=== PATIENT | male | born 1980 | race Hispanic/Latino ===

== ENCOUNTER 2016-09-09 08:10 | Emergency (ER) | payer OTHER ==
[2016-09-09 08:14] VITALS: BMI 23.8
[2016-09-09 08:20] VITALS: BP 128/80; PULSE 64; RESP 17; TEMP 97.7; O2SAT 98
--- NOTE | 2016-09-09 08:22 | C.PDOC ---
History Of Present Illness <Shakila Vincent - Last Filed: 09/09/16 08:43> <Kari Portillo - Last Filed: 09/14/16 08:22> 35 yr old male with PMhx of anxiety, presents to the ER with left knee pain for 1 day. 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 States today he feels pain while walking, did go to work but had pain and came to the ED. Patient denies back pain, leg pain, weakness or numbness. (Kari Portillo) <Shakila Vincent - Last Filed: 09/09/16 08:43> History Per: Patient History/Exam Limitations: no limitations Onset/Duration Of Symptoms: Days (1) Current Symptoms Are (Timing): Still Present Recent travel outside of the [place]: No <Kari Portillo - Last Filed: 09/14/16 08:22> Time Seen by Provider: 09/09/16 08:11 Chief Complaint (Nursing): Lower Extremity Problem/Injury Past Medical History Reviewed: Historical Data, Nursing Documentation, Vital Signs - Medical History PMH: Anxiety Family History: States: No Known Family Hx - Social History Hx Tobacco Use: No Hx Alcohol Use: Yes Hx Substance Use: Yes - Immunization History Hx Tetanus Toxoid Vaccination: No Hx Influenza Vaccination: Yes Hx Pneumococcal Vaccination: No <Kari Portillo - Last Filed: 09/14/16 08:22> Vital Signs: Last Vital Signs Temp 97.7 F 09/09/16 08:18 Pulse 64 09/09/16 08:18 Resp 17 09/09/16 08:18 BP 128/80 09/09/16 08:18 Pulse Ox 98 09/09/16 16:50 Review Of Systems Except As Marked, All Systems Reviewed And Found Negative. Musculoskeletal: Positive for: Other ((+) Left knee pain). Negative for: Back Pain, Leg Pain Neurological: Negative for: Weakness, Numbness <Kari Portillo - Last Filed: 09/14/16 08:22> Physical Exam - Physical Exam Appears: Well, Non-toxic, No Acute Distress Skin: Warm, Dry, No Rash Head: Atraumatic, Normacephalic Eye(s): bilateral: Normal Inspection, PERRL, EOMI Oral Mucosa: Moist Chest: Symmetrical, No Tenderness Cardiovascular: Rhythm Regular, No Murmur Respiratory: Normal Breath Sounds, No Rales, No Rhonchi, No Wheezing Gastrointestinal/Abdominal: Normal Exam, Soft, No Tenderness, No Guarding, No Rebound Extremity: Normal ROM, Tenderness (Left Knee - Tender to the anterior aspect of the left patella), No Calf Tenderness, No Deformity, No Swelling Neurological/Psych: Oriented x3, Normal Speech, Normal Motor, Normal Sensation <BandarKari - Last Filed: 09/14/16 08:22> ED Course And Treatment O2 Sat by Pulse Oximetry: 98 Pulse Ox Interpretation: Normal - Other Rad No standard instances X-Ray: Interpreted by Me Interpretation: Knee: no fx Progress Note: Treated with motrin 600 mg PO. Kristofer bandage applied to left knee Reassessment Condition: Improved <Shakila Vincent - Last Filed: 09/09/16 08:43> Medical Decision Making <Shakila Vincent - Last Filed: 09/09/16 08:43> <Kari Portillo - Last Filed: 09/14/16 08:22> Medical Decision Making: PLAN: * X-Ray - Left Knee * Motrin PO (BandarKari) Disposition - Disposition Disposition Time: 09:00 - POA Present On Arrival: None <Shakila Vincent - Last Filed: 09/09/16 08:43> <BandarKari - Last Filed: 09/14/16 08:22> - Disposition Referrals: Qamar Granados MD [Staff Provider] - Disposition: HOME/ ROUTINE Condition: GOOD Additional Instructions: Follow up with Ortho for further evaluation Prescriptions: Naproxen [Naprosyn] 1 tab PO BID PRN #25 tab PRN Reason: Pain Instructions: Knee Pain (ED), Knee Exercises (GEN) Forms: Work Excuse - Clinical Impression Clinical Impression: Knee pain <Shakila Vincent - Last Filed: 09/09/16 08:43> - PA / INTERNATIONAL EDITORIAL PRODUCER / Resident Statement MD/DO has reviewed & agrees with the documentation as recorded. - Scribe Statement The provider has reviewed the documentation as recorded by the Scribe <Kari Portillo - Last Filed: 09/14/16 08:22> - Scribe Statement Lizz Mann All medical record entries made by the Scribe were at my direction and personally dictated by me. I have reviewed the chart and agree that the record accurately reflects my personal performance of the history, physical exam, medical decision making, and the department course for this patient. I have also personally directed, reviewed, and agree with the discharge instructions and disposition. (Kari Portillo)
--- NOTE | 2016-09-09 08:54 | C.PDOC ---
History Of Present Illness 35 yr old male with PMHx of anxiety, presents to the ER with left knee pain for 1 day. 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 States today he feels pain while walking, did go to work but had pain and came to the ED. Patient denies back pain, leg pain, weakness or numbness. Time Seen by Provider: 09/09/16 08:11 Chief Complaint (Nursing): Lower Extremity Problem/Injury History Per: Patient History/Exam Limitations: no limitations Onset/Duration Of Symptoms: Days (1) Past Medical History Reviewed: Historical Data, Nursing Documentation, Vital Signs Vital Signs: Last Vital Signs Temp 97.7 F 09/09/16 08:18 Pulse 64 09/09/16 08:18 Resp 17 09/09/16 08:18 BP 128/80 09/09/16 08:18 Pulse Ox 98 09/09/16 08:54 - Medical History PMH: Anxiety Family History: States: No Known Family Hx - Social History Hx Tobacco Use: No Hx Alcohol Use: Yes Hx Substance Use: Yes - Immunization History Hx Tetanus Toxoid Vaccination: No Hx Influenza Vaccination: Yes Hx Pneumococcal Vaccination: No Review Of Systems Except As Marked, All Systems Reviewed And Found Negative. Musculoskeletal: Positive for: Other ((+) Left Knee Pain). Negative for: Back Pain, Leg Pain Neurological: Negative for: Weakness, Numbness Physical Exam - Physical Exam Appears: Well, Non-toxic, No Acute Distress Skin: Warm, Dry, No Rash Head: Atraumatic, Normacephalic Oral Mucosa: Moist Chest: Symmetrical, No Tenderness Cardiovascular: Rhythm Regular, No Murmur Respiratory: Normal Breath Sounds, No Rales, No Rhonchi, No Wheezing Gastrointestinal/Abdominal: Normal Exam, Soft, No Tenderness, No Guarding, No Rebound Extremity: Normal ROM, Tenderness (Left Knee - Tenderness to the anterior aspect of the left patella), No Calf Tenderness, No Deformity, No Swelling Neurological/Psych: Oriented x3, Normal Speech, Normal Motor ED Course And Treatment O2 Sat by Pulse Oximetry: 98 Medical Decision Making Medical Decision Making: PLAN: * X-Ray - Left Knee * Motrin PO Disposition Counseled Patient/Family Regarding: Studies Performed, Diagnosis, Need For Followup, Rx Given - Disposition Referrals: Qamar Granados MD [Staff Provider] - Disposition: HOME/ ROUTINE Disposition Time: 09:00 Condition: GOOD Additional Instructions: Follow up with Ortho for further evaluation Prescriptions: Naproxen [Naprosyn] 1 tab PO BID PRN #25 tab PRN Reason: Pain Instructions: Knee Pain (ED), Knee Exercises (GEN) Forms: Work Excuse - Clinical Impression Clinical Impression: Knee pain - PA / SENIOR HRIS ANALYST / Resident Statement MD/DO has reviewed & agrees with the documentation as recorded. - Scribe Statement The provider has reviewed the documentation as recorded by the Scribe Lizz Mann All medical record entries made by the Svitlanaibmelba were at my direction and personally dictated by me. I have reviewed the chart and agree that the record accurately reflects my personal performance of the history, physical exam, medical decision making, and the department course for this patient. I have also personally directed, reviewed, and agree with the discharge instructions and disposition.
--- NOTE | 2016-09-09 11:44 | RAD ---
PROCEDURE: Left Knee Radiographs. HISTORY: Pain. COMPARISON: None. FINDINGS: BONES: There is no acute displaced fracture or bone destruction. Bone alignment and mineralization are normal. JOINTS: Normal. No osteoarthritis. JOINT EFFUSION: None. OTHER FINDINGS: None. IMPRESSION: No acute fracture or dislocation.
== END 2016-09-09 08:57 | disposition home or self-care (01) ==
LOC: C.ER 08:10
DX: M25.562 Pain in left knee (principal)

== ENCOUNTER 2016-12-11 20:04 | Emergency (ER) | payer OTHER ==
[2016-12-11 20:04] VITALS: BMI 23.8
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
--- NOTE | 2016-12-12 11:16 | RAD ---
PROCEDURE: Cervical Spine Radiographs. HISTORY: Pain. COMPARISON: None. FINDINGS: BONES: Alignment maintained. No fracture. Dens Intact. DISC SPACES: Normal. SOFT TISSUES: Normal. No prevertebral soft tissue swelling. OTHER FINDINGS: None. IMPRESSION: No evidence of acute fracture or subluxation.
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
[2016-12-12 12:09] VITALS: BP 133/85; PULSE 83; RESP 18; TEMP 98.1; O2SAT 99
== END 2016-12-11 21:29 | disposition home or self-care (01) ==
LOC: C.ER 20:04
DX: S16.1XXA Strain of muscle, fascia and tendon at neck level, initial encounter (principal); S39.012A Strain of muscle, fascia and tendon of lower back, initial encounter; V89.2XXA Person injured in unspecified motor-vehicle accident, traffic, initial encounter